=== PATIENT | female | born 1965 | race Caucasian/White ===

== ENCOUNTER → 2019-02-11 | Outpatient (CLI) | payer BC ==
[~2019-02-11] MED LIST: ALPR-429 PO; AMOX-362 PO; ATOV1TAB17 PO; BUPR-472 PO; DESO1TAB PO; DIAZ-303 PO; ESC10 PO; ESCI10TA8 PO; ESCI20TA38 PO; ESOM40CA42 PO; FAMC500T18 PO; GABA-549 PO; HYDR-385 PO; LEVO-3 PO; LINA145C PO; LINA72CA PO; MULT-1335 PO; PROM-110 PO; SUMA100T32 PO; THYR60TA25 PO; TRAZ-133 PO; TRAZ100T31 PO; TRAZ50TA34 PO; VITA1CAP46 PO; ZOLP-350 PO; [UNRECOGNIZED DRUG - OTHER] TOP
--- NOTE | 2019-02-11 13:28 | RADIOLOGY IMAGING REPORT ---
FACILITY: [facility] - [place] PATIENT NAME: Matt Maxwell : 1965 MR: [id number] V: [id number] EXAM DATE: ORDERING PHYSICIAN: CARLTON OVALLE TECHNOLOGIST: Location: [facility] - [place], [place] Patient: Matt Maxwell : 1965 Visit/Account:[id number] Date of Sevice: 02/11/2019 PELVIC HISTORY: Postmenopausal bleeding TECHNIQUE: Transvaginal and transabdominal ultrasound pelvis. COMPARISON: None. FINDINGS: Uterus: ; 8.2 cm length x 3.8 cm AP x 5 cm transverse. Myometrium: Unremarkable. Endometrium: Unremarkable; double thickness 5.4 mm. Cervix: Grossly negative. Ovaries: Right - 1.3 x 0.7 x 1.2 Left - 1.6 x 0.9 x 1.3 Blood flow is documented in each ovary by duplex Doppler ultrasound. Adnexa: Grossly unremarkable. Free pelvic fluid: None. IMPRESSION: Unremarkable pelvic ultrasound other than atrophic ovaries Report Dictated By: Ally Du MD at 02/11/2019 1:21 PM Report E-Signed By: Ally Du MD at 02/11/2019 1:24 PM WSN:[id number]
== END ==
LOC: US 00:30
PROVIDERS: ATTEND Nurse Practitioner Family
DX: N95.0 Postmenopausal bleeding (principal)
CPT/HCPCS: 76830; 76856